=== PATIENT | female | born 1945 | race Caucasian/White ===

== ENCOUNTER 2020-11-12 12:27 | Emergency (ER) | payer MEDICARE ==
[~2020-11-12] VITALS: Ht 167.6 cm; Wt 93.1 kg
[2020-11-12 12:34] VITALS: BP 156/64
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
[2020-11-12] MEDS ORDERED: NEOSPORIN OINT. PKT 1 PACKET ONE (13:47)
[2020-11-12] MEDS ORDERED: HYDROcodone/APAP 5/325 TABLET ONE (14:12)
[2020-11-12] MEDS ORDERED: HYDROcodone/APAP 5/325 TABLET PO ONE (14:30)
== END 2020-11-12 15:12 | disposition home or self-care (01) ==
LOC: ED 15:00
DX: S81.011A Laceration without foreign body, right knee, initial encounter (principal); M25.461 Effusion, right knee; E11.9 Type 2 diabetes mellitus without complications; Z90.89 Acquired absence of other organs; Z90.49 Acquired absence of other specified parts of digestive tract; Z90.710 Acquired absence of both cervix and uterus; X58.XXXA Exposure to other specified factors, initial encounter; Y93.89 Activity, other specified; Y92.89 Other specified places as the place of occurrence of the external cause; Y99.8 Other external cause status
CPT/HCPCS: 99283